=== PATIENT | female | born 1960 | race Two or more races ===

== ENCOUNTER 2019-01-17 21:49 | Inpatient (IN) | payer BC ==
[~2019-01-17] VITALS: Ht 152.4 cm; Wt 57.6 kg
[2019-01-17] MEDS ORDERED: ONDANSETRON HCL 4MG/2ML INJ IV STA (22:10)
[2019-01-17] MEDS ORDERED: VANCOMYCIN 1 G PREMIX 200 ML IV ONE (22:15)
[2019-01-17] MEDS ORDERED: PIPERACILLIN/TAZ 3.375G PREMIX 50 ML IV ONE (22:15)
[2019-01-17] MEDS ORDERED: SODIUM CHLORIDE 0.9% 1000ML BAG (SEPSIS BOLUS) IV ONE (22:15)
[2019-01-17 22:37] LABS: BASOPHILS % 0.6 % (0.0-2.0); EOSINOPHILS % 0.3 % (0.0-5.0); HEMATOCRIT. 34.2 % (36.0-48.0); HEMOGLOBIN. 11.3 g/dL (12.0-16.0); MEAN CORPUSCULAR HEMOGLOBIN 27.8 pg (28.0-32.0); MEAN CORPUSCULAR VOLUME 84.5 fL (81.0-99.0); MEAN PLATELET VOLUME 7.7 fl (7.4-10.4); MONOCYTES % 6.7 % (2.0-8.0); NEUTROPHILS % 76.4 % (40.0-76.0); PLATELET 256 x1000/uL (130-400); RED BLOOD CELL COUNT 4.04 mill/uL (4.2-5.4); RED CELL DISTRIBUTION WIDTH 15.3 % (11.6-14.6)
[2019-01-17 22:43] LABS: PROTHROMBIN TIME 10.6 sec (9.6-11.0)
[2019-01-17 22:44] LABS: CHLORIDE 117 mEq/L (98-107)
[2019-01-17] MEDS ORDERED: LACTULOSE 300 ML in WATER FOR IRRIGATION,STERILE 700 ML IR ONE (23:00)
[2019-01-17] MEDS ORDERED: HEPARIN 25,000 UNITS PREMIX 500 ML IV ONE (23:00)
[2019-01-17] MEDS ORDERED: ASPIRIN 300MG SUPP PR ONE (23:00)
[2019-01-17 23:28] LABS: CLARITY URINE CLEAR (CLEAR); COLOR URINE YELLOW (YELLOW); KETONES URINE TRACE (NEGATIVE); LEUKOCYTE ESTERASE URINE NEGATIVE (NEGATIVE); NITRITE URINE NEGATIVE (NEGATIVE); OCCULT BLOOD URINE NEGATIVE (NEGATIVE); PROTEIN URINE TRACE (NEGATIVE); SPECIFIC GRAVITY URINE 1.018 (1.005-1.030); UROBILINOGEN URINE 0.2 E.U./dL (0.2-1.0)
[2019-01-18] VITALS (16 sets, daily range): BP systolic 93–148; BP diastolic 66–96
[2019-01-18] MEDS ORDERED: DEXT 5%/0.45% NACL 1000ML 1,000 ML IV SCH (00:08)
[2019-01-18] MEDS ORDERED: ONDANSETRON HCL 4MG/2ML INJ IV PRN (00:15)
[2019-01-18] MEDS ORDERED: CLONIDINE 0.1MG TABLET PO PRN ×2 (00:15→08:45)
[2019-01-18] MEDS ORDERED: DIPHENHYDRAMINE 50MG/ML VIAL IV PRN ×2 (00:15→08:45)
[2019-01-18] MEDS ORDERED: NA PHOS,M-B/NA PHOS,DI-BA ENEMA 118ML PR PRN ×2 (00:15→08:45)
[2019-01-18] MEDS ORDERED: IPRATROPIUM/ALBUTEROL 0.5-3(2.5)MG/3ML NEB NEB PRN (00:15)
[2019-01-18] MEDS ORDERED: MAGNESIUM/ALUMINUM HYDROXIDE/SIMETHICONE 30ML UDC PO PRN ×2 (00:15→08:45)
[2019-01-18] MEDS ORDERED: GUAIFENESIN 200MG/10ML SUGAR FREE UDC PO PRN ×2 (00:15→08:45)
[2019-01-18] MEDS ORDERED: DOCUSATE SODIUM 100MG CAPSULE PO PRN (00:15)
[2019-01-18] MEDS ORDERED: HEPARIN 5000 UNITS/ML VIAL IV NR (01:00)
[2019-01-18] MEDS ORDERED: LACTULOSE 20G/30ML UDC PO SCH ×2 (02:45→06:00)
[2019-01-18] MEDS ORDERED: PROPOFOL 10MG/ML 100ML 100 ML IV ONE (04:04)
[2019-01-18] MEDS ORDERED: MIDAZOLAM HCL 50 MG in DEXTROSE 5% WATER 40 ML IV ONE (04:30)
[2019-01-18] MEDS ORDERED: MIDAZOLAM HCL 50 MG in DEXTROSE 5% WATER 50ML IV PRN (04:30)
[2019-01-18] MEDS ORDERED: PROPOFOL 10MG/ML 100ML 100 ML IV SCH (05:15)
[2019-01-18 05:50] LABS: BG BASE EXCESS -10.3 mmol/L (-2.0-2.0); BG CARBOXYHEMOGLOBIN 0.1 % (0.5-1.5); BG DEOXYHEMOGLOBIN 0.9 % (0.0-5.0); BG FRACTION INSPIRED OXYGEN 60; BG HCO3 ACT 12.4 mmol/L (22.0-26.0); BG METHEMOGLOBIN 0.2 % (0.0-1.5); BG OXYGEN SATURATION 99.1 % (92.0-98.5); BG OXYHEMOGLOBIN 98.8 % (94.0-97.0); BG PCO2 20.2 mmHg (35.0-45.0); BG PH 7.406 (7.350-7.450); BG PO2 247.9 mmHg (75.0-100.0); BG SAMPLE SITE RIGHT BRACHIAL; BG TIDAL VOLUME(mL) 500 mL; BG TOTAL HEMOGLOBIN 11.5 g/dL (12.0-18.0); BG VENT MODE VENT - A/C; BG VENT RATE 16 set
[2019-01-18] MEDS: SODIUM CHLORIDE 0.9% INJ 3ML FLUSH IVF SCH ×3 (06:00→22:00)
[2019-01-18] MEDS ORDERED: SODIUM BICARBONATE 100 MEQ in DEXT 5%/0.45% NACL 1000ML 1,000 ML IV SCH (08:00)
[2019-01-18] MEDS ORDERED: DEXTROSE 50% WATER 50ML SYRINGE IV PRN (08:45)
[2019-01-18] MEDS ORDERED: ACETAMINOPHEN 325MG TABLET PO PRN (08:45)
[2019-01-18] MEDS ORDERED: ENOXAPARIN 40MG/0.4ML SYR SUBCUT SCH (08:45)
[2019-01-18] MEDS ORDERED: ACETAMINOPHEN 650MG SUPP PR PRN (08:45)
[2019-01-18] MEDS ORDERED: IPRATROPIUM/ALBUTEROL 0.5-3(2.5)MG/3ML NEB ORI PRN (08:45)
[2019-01-18] MEDS ORDERED: ACETAMINOPHEN 650MG/20.3ML UDC GT PRN (08:45)
[2019-01-18] MEDS ORDERED: LEVOFLOXACIN 500MG PREMIX 100 ML IV SCH (09:11)
[2019-01-18] MEDS ORDERED: ENOXAPARIN 30MG/0.3ML SYR SUBCUT SCH (09:15)
[2019-01-18] MEDS: FOLIC ACID 1MG TABLET PO SCH (09:35)
[2019-01-18] MEDS: RIFAXIMIN 550 MG TABLET PO SCH ×2 (09:35→21:55)
[2019-01-18] MEDS: THIAMINE HCL 100MG TABLET PO SCH (09:39)
[2019-01-18] MEDS: BLOOD SUGAR DIAGNOSTIC STRIP TEST SCH ×4 (09:54→21:55)
[2019-01-18] MEDS: LACTULOSE 20G/30ML UDC PO SCH ×2 (10:00→18:01)
[2019-01-18] MEDS: SODIUM BICARBONATE 50 MEQ in DEXT 5%/0.45% NACL 1000ML 1,000 ML IV SCH ×2 (10:30→23:31)
[2019-01-18] MEDS ORDERED: NOREPINEPHRINE 4MG/250ML PMX 250 ML IV ONE ×2 (10:30→10:45)
[2019-01-18] MEDS ORDERED: NOREPINEPHRINE 4MG/250ML PMX 250 ML IV SCH (10:45)
[2019-01-18] MEDS ORDERED: NOREPINEPHRINE 4 MG in DEXT 5% WATER 246 ML IV ONE (10:45)
[2019-01-18] MEDS ORDERED: LIDOCAINE HCL 1% 20ML VIAL (Pyxis) INJ ONE (11:15)
[2019-01-18 12:17] LABS: HEMATOCRIT 32.3 % (36.0-48.0); HEMOGLOBIN 10.5 g/dL (12.0-16.0); MEAN CORPUSCULAR HEMOGLOBIN 28.1 pg (28.0-32.0); MEAN CORPUSCULAR VOLUME 86.3 fL (81.0-99.0); PLATELET 294 x1000/uL (130-400); RED BLOOD CELL COUNT 3.75 mill/uL (4.2-5.4); RED CELL DISTRIBUTION WIDTH 15.6 % (11.6-14.6)
[2019-01-18 12:21] LABS: CHLORIDE 118 mEq/L (98-107)
[2019-01-18 12:22] LABS: INR 1.1; PROTHROMBIN TIME 10.9 sec (9.6-11.0)
[2019-01-18 12:24] LABS: BG BASE EXCESS -8.2 mmol/L (-2.0-2.0); BG CARBOXYHEMOGLOBIN 0.3 % (0.5-1.5); BG DEOXYHEMOGLOBIN 1.1 % (0.0-5.0); BG FRACTION INSPIRED OXYGEN 40; BG HCO3 ACT 13.6 mmol/L (22.0-26.0); BG METHEMOGLOBIN 0.3 % (0.0-1.5); BG OXYGEN SATURATION 98.9 % (92.0-98.5); BG OXYHEMOGLOBIN 98.3 % (94.0-97.0); BG PCO2 19.7 mmHg (35.0-45.0); BG PH 7.457 (7.350-7.450); BG PO2 184.1 mmHg (75.0-100.0); BG SAMPLE SITE RIGHT RADIAL; BG TIDAL VOLUME(mL) 500 mL; BG TOTAL HEMOGLOBIN 11.5 g/dL (12.0-18.0); BG VENT MODE VENT - A/C; BG VENT RATE 12 set
[2019-01-18 12:31] LABS: CREATINE KINASE 135 IU/L (26-192)
[2019-01-18 12:33] LABS: CREATINE KINASE MB FRACTION 10.5 ng/mL (0.5-3.6)
[2019-01-18] MEDS: INSULIN LISPRO 100 UNITS/ML SUBCUT SCH ×3 (14:47→22:18)
[2019-01-18] MEDS ORDERED: METRONIDAZOLE 500 MG PREMIX 100 ML IV SCH (15:29)
[2019-01-18] MEDS: METRONIDAZOLE 500 MG PREMIX 100 ML IV SCH (18:02)
[2019-01-18] MEDS: ENOXAPARIN 30MG/0.3ML SYR SUBCUT SCH (18:02)
[2019-01-18] MEDS: CITRIC ACID/SODIUM CITRATE SOLN 15ML UDC PO SCH (18:02)
[2019-01-18 18:21] LABS: BG BASE EXCESS -9.2 mmol/L (-2.0-2.0); BG CARBOXYHEMOGLOBIN 0.2 % (0.5-1.5); BG DEOXYHEMOGLOBIN 0.8 % (0.0-5.0); BG FRACTION INSPIRED OXYGEN 40; BG METHEMOGLOBIN 0.1 % (0.0-1.5); BG OXYGEN SATURATION 99.2 % (92.0-98.5); BG OXYHEMOGLOBIN 98.9 % (94.0-97.0); BG PCO2 14.4 mmHg (35.0-45.0); BG PH 7.502 (7.350-7.450); BG PO2 195.1 mmHg (75.0-100.0); BG SAMPLE SITE LEFT BRACHIAL; BG TIDAL VOLUME(mL) 500 mL; BG TOTAL HEMOGLOBIN 12.4 g/dL (12.0-18.0); BG VENT MODE VENT - A/C; BG VENT RATE 12 set
[2019-01-18] MEDS ORDERED: NOREPINEPHRINE 16 MG in DEXT 5% WATER 234 ML IV PRN (18:45)
[2019-01-18] MEDS: NOREPINEPHRINE 16 MG in DEXT 5% WATER 234 ML IV PRN (18:58)
[2019-01-18 20:16] LABS: CREATINE KINASE MB FRACTION 3.8 ng/mL (0.5-3.6)
[2019-01-18] MEDS: IPRATROPIUM/ALBUTEROL 0.5-3(2.5)MG/3ML NEB HHN SCH (20:35)
[2019-01-19] VITALS (71 sets, daily range): BP systolic 65–136; BP diastolic 18–97
[2019-01-19 00:36] LABS: CREATINE KINASE 221 IU/L (26-192)
[2019-01-19 00:38] LABS: CREATINE KINASE MB FRACTION 7.7 ng/mL (0.5-3.6)
[2019-01-19] MEDS: LACTULOSE 20G/30ML UDC PO SCH ×3 (01:23→18:37)
[2019-01-19] MEDS: METRONIDAZOLE 500 MG PREMIX 100 ML IV SCH ×3 (01:24→18:37)
[2019-01-19] MEDS: IPRATROPIUM/ALBUTEROL 0.5-3(2.5)MG/3ML NEB HHN SCH ×7 (02:59→23:52)
[2019-01-19] MEDS ORDERED: PIOG45TA5 PO (03:21)
[2019-01-19] MEDS ORDERED: VER40 MT (03:30)
[2019-01-19] MEDS ORDERED: LACT10SO6 MT (03:31)
[2019-01-19] MEDS: SODIUM CHLORIDE 0.9% INJ 3ML FLUSH IVF SCH ×3 (06:08→22:00)
[2019-01-19 06:15] LABS: BASOPHILS % 0.9 % (0.0-2.0); EOSINOPHILS % 1.2 % (0.0-5.0); HEMATOCRIT. 37.2 % (36.0-48.0); HEMOGLOBIN. 11.9 g/dL (12.0-16.0); LYMPHOCYTES % 16.9 % (20.0-50.0); MEAN CORPUSCULAR HEMOGLOBIN 28.1 pg (28.0-32.0); MEAN CORPUSCULAR VOLUME 87.4 fL (81.0-99.0); MEAN PLATELET VOLUME 7.7 fl (7.4-10.4); MONOCYTES % 9.6 % (2.0-8.0); NEUTROPHILS % 71.4 % (40.0-76.0); PLATELET 285 x1000/uL (130-400); RED BLOOD CELL COUNT 4.25 mill/uL (4.2-5.4); RED CELL DISTRIBUTION WIDTH 15.9 % (11.6-14.6)
[2019-01-19 06:27] LABS: CHLORIDE 110 mEq/L (98-107)
[2019-01-19 06:40] LABS: PHOSPHORUS 2.4 mg/dL (2.5-4.9)
[2019-01-19 06:41] LABS: HDL CHOLESTEROL 51 mg/dL (40-59); LDL CHOLESTEROL 64 mg/dL (5-100)
[2019-01-19] MEDS: MIDAZOLAM HCL 50 MG in DEXTROSE 5% WATER 40 ML IV PRN ×3 (08:43→20:58)
[2019-01-19] MEDS: BLOOD SUGAR DIAGNOSTIC STRIP TEST SCH ×4 (08:44→21:00)
[2019-01-19] MEDS: CITRIC ACID/SODIUM CITRATE SOLN 15ML UDC PO SCH ×2 (08:54→13:01)
[2019-01-19] MEDS: FOLIC ACID 1MG TABLET PO SCH (08:54)
[2019-01-19] MEDS: PANTOPRAZOLE SODIUM 40 MG/VIAL IV SCH (08:54)
[2019-01-19] MEDS: RIFAXIMIN 550 MG TABLET PO SCH ×2 (08:54→21:41)
[2019-01-19] MEDS: THIAMINE HCL 100MG TABLET PO SCH (08:55)
[2019-01-19] MEDS: NOREPINEPHRINE 16 MG in DEXT 5% WATER 234 ML IV PRN (08:55)
[2019-01-19] MEDS ORDERED: LEVOFLOXACIN 250MG PREMIX 50 ML IV SCH (09:00)
[2019-01-19 09:01] LABS: BG BASE EXCESS -6.3 mmol/L (-2.0-2.0); BG CARBOXYHEMOGLOBIN 0.2 % (0.5-1.5); BG DEOXYHEMOGLOBIN 1.2 % (0.0-5.0); BG FRACTION INSPIRED OXYGEN 40; BG HCO3 ACT 15.3 mmol/L (22.0-26.0); BG METHEMOGLOBIN 0.3 % (0.0-1.5); BG OXYGEN SATURATION 98.8 % (92.0-98.5); BG OXYHEMOGLOBIN 98.3 % (94.0-97.0); BG PCO2 20.4 mmHg (35.0-45.0); BG PH 7.492 (7.350-7.450); BG PO2 173.4 mmHg (75.0-100.0); BG SAMPLE SITE RIGHT BRACHIAL; BG TIDAL VOLUME(mL) 500 mL; BG TOTAL HEMOGLOBIN 10.6 g/dL (12.0-18.0); BG VENT MODE VENT - A/C; BG VENT RATE 10 set
[2019-01-19] MEDS ORDERED: AMLODIPINE 10MG TABLET PO ONE (09:30)
[2019-01-19] MEDS: INSULIN LISPRO 100 UNITS/ML SUBCUT SCH ×4 (10:36→21:42)
[2019-01-19] MEDS ORDERED: MORPHINE SULFATE 2 MG/ML CPJ (NOT FOR IM USE) IV PRN (11:54)
[2019-01-19] MEDS: SODIUM BICARBONATE 50 MEQ in DEXT 5%/0.45% NACL 1000ML 1,000 ML IV SCH (16:03)
[2019-01-19] MEDS ORDERED: MAGNESIUM 2 G PREMIX 50 ML IV SCH (18:00)
[2019-01-19] MEDS ORDERED: SODIUM PHOS,M-BASIC-D-BASIC 10 MM in DEXT 5% WATER 246.6667 ML IV SCH (18:00)
[2019-01-19] MEDS: DEXT 5%/0.9% NACL 1,000 ML IV SCH (18:38)
[2019-01-19] MEDS: ENOXAPARIN 30MG/0.3ML SYR SUBCUT SCH (18:50)
[2019-01-20] VITALS (48 sets, daily range): BP systolic 91–127; BP diastolic 49–89
[2019-01-20] MEDS: METRONIDAZOLE 500 MG PREMIX 100 ML IV SCH ×3 (02:42→19:02)
[2019-01-20] MEDS: LACTULOSE 20G/30ML UDC PO SCH ×3 (02:42→18:00)
[2019-01-20] MEDS: MIDAZOLAM HCL 100 MG in DEXTROSE 5% WATER 80 ML IV PRN ×3 (02:42→23:52)
[2019-01-20] MEDS: IPRATROPIUM/ALBUTEROL 0.5-3(2.5)MG/3ML NEB HHN SCH ×5 (04:02→20:31)
[2019-01-20] MEDS: SODIUM CHLORIDE 0.9% INJ 3ML FLUSH IVF SCH ×3 (05:07→21:34)
[2019-01-20 06:22] LABS: BASOPHILS % 0.6 % (0.0-2.0); EOSINOPHILS % 1.8 % (0.0-5.0); HEMATOCRIT. 34.6 % (36.0-48.0); HEMOGLOBIN. 11.1 g/dL (12.0-16.0); LYMPHOCYTES % 15.1 % (20.0-50.0); MEAN CORPUSCULAR HEMOGLOBIN 27.9 pg (28.0-32.0); MEAN PLATELET VOLUME 7.8 fl (7.4-10.4); MONOCYTES % 7.2 % (2.0-8.0); NEUTROPHILS % 75.3 % (40.0-76.0); PLATELET 330 x1000/uL (130-400); RED BLOOD CELL COUNT 3.97 mill/uL (4.2-5.4)
[2019-01-20 07:22] LABS: INR 1.1; PARTIAL THROMBOPLASTIN TIME 30.7 sec (23.4-31.0); PROTHROMBIN TIME 11.6 sec (9.6-11.0)
[2019-01-20] MEDS: BLOOD SUGAR DIAGNOSTIC STRIP TEST SCH ×4 (07:50→21:22)
[2019-01-20 08:19] LABS: BG BASE EXCESS -4.9 mmol/L (-2.0-2.0); BG CARBOXYHEMOGLOBIN 0.7 % (0.5-1.5); BG FRACTION INSPIRED OXYGEN 35; BG HCO3 ACT 17.3 mmol/L (22.0-26.0); BG METHEMOGLOBIN 0.2 % (0.0-1.5); BG OXYHEMOGLOBIN 98.1 % (94.0-97.0); BG PCO2 24.5 mmHg (35.0-45.0); BG PH 7.467 (7.350-7.450); BG PO2 157.4 mmHg (75.0-100.0); BG SAMPLE SITE RIGHT BRACHIAL; BG TIDAL VOLUME(mL) 500 mL; BG TOTAL HEMOGLOBIN 11.9 g/dL (12.0-18.0); BG VENT MODE VENT - A/C; BG VENT RATE 10 set
[2019-01-20] MEDS: INSULIN LISPRO 100 UNITS/ML SUBCUT SCH ×4 (08:20→21:33)
[2019-01-20] MEDS: THIAMINE HCL 100MG TABLET PO SCH (09:00)
[2019-01-20] MEDS: LEVOFLOXACIN 250MG PREMIX 50 ML IV SCH (09:00)
[2019-01-20] MEDS ORDERED: AMLODIPINE 10MG TABLET PO SCH (09:00)
[2019-01-20] MEDS: PANTOPRAZOLE SODIUM 40 MG/VIAL IV SCH (09:00)
[2019-01-20] MEDS: FOLIC ACID 1MG TABLET PO SCH (09:00)
[2019-01-20] MEDS: RIFAXIMIN 550 MG TABLET PO SCH ×2 (09:00→21:33)
[2019-01-20] MEDS ORDERED: MAGNESIUM 2 G PREMIX 50 ML IV SCH (10:00)
[2019-01-20] MEDS ORDERED: POTASSIUM CHLORIDE INJ 40 MEQ in DEXT 5% WATER 250 ML IV SCH (10:00)
[2019-01-20] MEDS: DEXT 5%/0.9% NACL 1,000 ML IV SCH (13:00)
[2019-01-20] MEDS: ENOXAPARIN 30MG/0.3ML SYR SUBCUT SCH (19:02)
[2019-01-21] VITALS (59 sets, daily range): BP systolic 94–138; BP diastolic 48–89
[2019-01-21] MEDS: IPRATROPIUM/ALBUTEROL 0.5-3(2.5)MG/3ML NEB HHN SCH ×6 (00:08→20:32)
[2019-01-21] MEDS: LACTULOSE 20G/30ML UDC PO SCH ×3 (01:29→18:20)
[2019-01-21] MEDS: METRONIDAZOLE 500 MG PREMIX 100 ML IV SCH ×3 (01:29→18:20)
[2019-01-21] MEDS: NOREPINEPHRINE 16 MG in DEXT 5% WATER 234 ML IV PRN (04:43)
[2019-01-21] MEDS: SODIUM CHLORIDE 0.9% INJ 3ML FLUSH IVF SCH ×3 (06:00→21:01)
[2019-01-21 06:15] LABS: EOSINOPHILS % 3.8 % (0.0-5.0); HEMATOCRIT. 33.6 % (36.0-48.0); HEMOGLOBIN. 11.1 g/dL (12.0-16.0); LYMPHOCYTES % 15.9 % (20.0-50.0); MEAN CORPUSCULAR HEMOGLOBIN 28.7 pg (28.0-32.0); MEAN CORPUSCULAR VOLUME 86.9 fL (81.0-99.0); MEAN PLATELET VOLUME 7.9 fl (7.4-10.4); MONOCYTES % 6.8 % (2.0-8.0); NEUTROPHILS % 72.5 % (40.0-76.0); PLATELET 310 x1000/uL (130-400); RED BLOOD CELL COUNT 3.86 mill/uL (4.2-5.4); RED CELL DISTRIBUTION WIDTH 15.5 % (11.6-14.6)
[2019-01-21 06:28] LABS: INR 1.1; PARTIAL THROMBOPLASTIN TIME 27.6 sec (23.4-31.0); PROTHROMBIN TIME 11.4 sec (9.6-11.0)
[2019-01-21] MEDS: BLOOD SUGAR DIAGNOSTIC STRIP TEST SCH ×4 (07:50→21:01)
[2019-01-21] MEDS: INSULIN LISPRO 100 UNITS/ML SUBCUT SCH ×4 (08:20→21:09)
[2019-01-21] MEDS: FOLIC ACID 1MG TABLET PO SCH (09:34)
[2019-01-21] MEDS: LEVOFLOXACIN 250MG PREMIX 50 ML IV SCH (09:34)
[2019-01-21] MEDS: THIAMINE HCL 100MG TABLET PO SCH (09:35)
[2019-01-21] MEDS: PANTOPRAZOLE SODIUM 40 MG/VIAL IV SCH (09:35)
[2019-01-21] MEDS: DEXT 5%/0.9% NACL 1,000 ML IV SCH (09:35)
[2019-01-21] MEDS: RIFAXIMIN 550 MG TABLET PO SCH ×2 (09:36→21:08)
[2019-01-21] MEDS: ENOXAPARIN 30MG/0.3ML SYR SUBCUT SCH (18:21)
[2019-01-22] VITALS (58 sets, daily range): BP systolic 72–131; BP diastolic 43–86
[2019-01-22] MEDS: IPRATROPIUM/ALBUTEROL 0.5-3(2.5)MG/3ML NEB HHN SCH ×6 (00:26→20:36)
[2019-01-22] MEDS: LACTULOSE 20G/30ML UDC PO SCH ×3 (01:56→18:30)
[2019-01-22] MEDS: METRONIDAZOLE 500 MG PREMIX 100 ML IV SCH ×3 (01:57→18:30)
[2019-01-22] MEDS: SODIUM CHLORIDE 0.9% INJ 3ML FLUSH IVF SCH ×3 (05:36→21:38)
[2019-01-22] MEDS: DEXT 5%/0.9% NACL 1,000 ML IV SCH (05:36)
[2019-01-22 05:56] LABS: EOSINOPHILS % 4.2 % (0.0-5.0); HEMATOCRIT. 30.8 % (36.0-48.0); HEMOGLOBIN. 10.1 g/dL (12.0-16.0); LYMPHOCYTES % 14.5 % (20.0-50.0); MEAN CORPUSCULAR HEMOGLOBIN 28.3 pg (28.0-32.0); MEAN CORPUSCULAR VOLUME 86.1 fL (81.0-99.0); MEAN PLATELET VOLUME 7.7 fl (7.4-10.4); MONOCYTES % 6.6 % (2.0-8.0); NEUTROPHILS % 73.7 % (40.0-76.0); PLATELET 279 x1000/uL (130-400); RED BLOOD CELL COUNT 3.57 mill/uL (4.2-5.4); RED CELL DISTRIBUTION WIDTH 15.5 % (11.6-14.6)
[2019-01-22 06:05] LABS: INR 1.1; PARTIAL THROMBOPLASTIN TIME 28.9 sec (23.4-31.0); PROTHROMBIN TIME 11.4 sec (9.6-11.0)
[2019-01-22 06:11] LABS: PHOSPHORUS 2.5 mg/dL (2.5-4.9)
[2019-01-22] MEDS ORDERED: POTASSIUM CHLORIDE 20MEQ TABLET SR PO SCH (07:30)
[2019-01-22] MEDS: BLOOD SUGAR DIAGNOSTIC STRIP TEST SCH ×4 (07:50→21:38)
[2019-01-22] MEDS: INSULIN LISPRO 100 UNITS/ML SUBCUT SCH ×4 (08:20→21:14)
[2019-01-22] MEDS ORDERED: ALBUMIN HUMAN 25GM/100ML (25%) IV NR (09:00)
[2019-01-22] MEDS: LEVOFLOXACIN 250MG PREMIX 50 ML IV SCH (09:00)
[2019-01-22 09:02] LABS: BG BASE EXCESS -6.8 mmol/L (-2.0-2.0); BG CARBOXYHEMOGLOBIN 0.4 % (0.5-1.5); BG DEOXYHEMOGLOBIN 1.7 % (0.0-5.0); BG FRACTION INSPIRED OXYGEN 30; BG HCO3 ACT 16.7 mmol/L (22.0-26.0); BG METHEMOGLOBIN 0.1 % (0.0-1.5); BG OXYGEN SATURATION 98.3 % (92.0-98.5); BG OXYHEMOGLOBIN 97.8 % (94.0-97.0); BG PH 7.394 (7.350-7.450); BG PO2 117.7 mmHg (75.0-100.0); BG SAMPLE SITE RIGHT RADIAL; BG TIDAL VOLUME(mL) 450 mL; BG VENT MODE VENT - A/C; BG VENT RATE 10 set
[2019-01-22] MEDS: PANTOPRAZOLE SODIUM 40 MG/VIAL IV SCH (09:51)
[2019-01-22] MEDS: MIDODRINE HCL 5MG TABLET NG SCH ×3 (09:51→17:34)
[2019-01-22] MEDS: RIFAXIMIN 550 MG TABLET PO SCH ×2 (09:53→21:13)
[2019-01-22] MEDS: THIAMINE HCL 100MG TABLET PO SCH (09:53)
[2019-01-22] MEDS: FOLIC ACID 1MG TABLET PO SCH (09:53)
[2019-01-22 12:50] LABS: BG BASE EXCESS -6.7 mmol/L (-2.0-2.0); BG CARBOXYHEMOGLOBIN 0.8 % (0.5-1.5); BG DEOXYHEMOGLOBIN 1.4 % (0.0-5.0); BG FRACTION INSPIRED OXYGEN 30; BG HCO3 ACT 17.4 mmol/L (22.0-26.0); BG OXYGEN SATURATION 98.6 % (92.0-98.5); BG OXYHEMOGLOBIN 97.8 % (94.0-97.0); BG PH 7.367 (7.350-7.450); BG PO2 134.3 mmHg (75.0-100.0); BG PRESSURE SUPPORT 8; BG SAMPLE SITE RIGHT BRACHIAL; BG TOTAL HEMOGLOBIN 14.2 g/dL (12.0-18.0); BG VENT MODE VENT - CPAP
[2019-01-22] MEDS: ENOXAPARIN 30MG/0.3ML SYR SUBCUT SCH (18:00)
[2019-01-23] VITALS (53 sets, daily range): BP systolic 81–139; BP diastolic 50–80
[2019-01-23] MEDS: IPRATROPIUM/ALBUTEROL 0.5-3(2.5)MG/3ML NEB HHN SCH ×6 (00:27→21:01)
[2019-01-23] MEDS: DEXT 5%/0.9% NACL 1,000 ML IV SCH (01:33)
[2019-01-23] MEDS: METRONIDAZOLE 500 MG PREMIX 100 ML IV SCH ×3 (01:33→17:31)
[2019-01-23] MEDS: LACTULOSE 20G/30ML UDC PO SCH ×3 (01:33→17:31)
[2019-01-23] MEDS: SODIUM CHLORIDE 0.9% INJ 3ML FLUSH IVF SCH ×3 (05:19→22:56)
[2019-01-23 05:40] LABS: BASOPHILS % 1.2 % (0.0-2.0); EOSINOPHILS % 3.7 % (0.0-5.0); HEMATOCRIT. 26.8 % (36.0-48.0); HEMOGLOBIN. 8.9 g/dL (12.0-16.0); LYMPHOCYTES % 19.6 % (20.0-50.0); MEAN CORPUSCULAR HEMOGLOBIN 28.8 pg (28.0-32.0); MEAN CORPUSCULAR VOLUME 87.1 fL (81.0-99.0); MEAN PLATELET VOLUME 7.5 fl (7.4-10.4); MONOCYTES % 6.5 % (2.0-8.0); PLATELET 179 x1000/uL (130-400); RED BLOOD CELL COUNT 3.08 mill/uL (4.2-5.4); RED CELL DISTRIBUTION WIDTH 15.5 % (11.6-14.6)
[2019-01-23 06:03] LABS: PHOSPHORUS 2.5 mg/dL (2.5-4.9)
[2019-01-23] MEDS: BLOOD SUGAR DIAGNOSTIC STRIP TEST SCH ×4 (07:50→21:24)
[2019-01-23] MEDS ORDERED: DEXT 5%/0.45% NACL 1000ML 1,000 ML IV SCH (08:00)
[2019-01-23] MEDS: INSULIN LISPRO 100 UNITS/ML SUBCUT SCH ×4 (08:20→21:00)
[2019-01-23] MEDS: RIFAXIMIN 550 MG TABLET PO SCH ×2 (09:00→21:24)
[2019-01-23] MEDS: CITRIC ACID/SODIUM CITRATE SOLN 15ML UDC PO SCH ×3 (09:00→17:30)
[2019-01-23] MEDS: PANTOPRAZOLE SODIUM 40 MG/VIAL IV SCH (09:00)
[2019-01-23] MEDS: MIDODRINE HCL 5MG TABLET NG SCH ×3 (09:00→17:30)
[2019-01-23] MEDS: THIAMINE HCL 100MG TABLET PO SCH (09:00)
[2019-01-23] MEDS: FOLIC ACID 1MG TABLET PO SCH (09:00)
[2019-01-23] MEDS ORDERED: LIDOCAINE HCL 1% 20ML VIAL (Pyxis) INJ ONE (09:34)
[2019-01-23] MEDS ORDERED: SODIUM BICARBONATE 4% (2.4MEQ) 5ML VIAL IV ONE (09:34)
[2019-01-23] MEDS: LEVOFLOXACIN 250MG PREMIX 50 ML IV SCH (11:13)
[2019-01-23] MEDS: ENOXAPARIN 30MG/0.3ML SYR SUBCUT SCH (17:31)
[2019-01-24] VITALS (57 sets, daily range): BP systolic 77–130; BP diastolic 50–116
[2019-01-24] MEDS: IPRATROPIUM/ALBUTEROL 0.5-3(2.5)MG/3ML NEB HHN SCH ×6 (00:43→21:23)
[2019-01-24] MEDS: LACTULOSE 20G/30ML UDC PO SCH ×3 (01:15→17:15)
[2019-01-24] MEDS: METRONIDAZOLE 500 MG PREMIX 100 ML IV SCH ×3 (01:16→17:17)
[2019-01-24] MEDS: SODIUM CHLORIDE 0.9% INJ 3ML FLUSH IVF SCH ×3 (06:00→21:48)
[2019-01-24 06:56] LABS: BASOPHILS % 0.7 % (0.0-2.0); EOSINOPHILS % 3.6 % (0.0-5.0); HEMATOCRIT. 30.1 % (36.0-48.0); HEMOGLOBIN. 9.7 g/dL (12.0-16.0); LYMPHOCYTES % 16.5 % (20.0-50.0); MEAN CORPUSCULAR HEMOGLOBIN 27.8 pg (28.0-32.0); MEAN CORPUSCULAR VOLUME 86.5 fL (81.0-99.0); MEAN PLATELET VOLUME 7.5 fl (7.4-10.4); MONOCYTES % 6.3 % (2.0-8.0); NEUTROPHILS % 72.9 % (40.0-76.0); PLATELET 206 x1000/uL (130-400); RED BLOOD CELL COUNT 3.48 mill/uL (4.2-5.4); RED CELL DISTRIBUTION WIDTH 15.8 % (11.6-14.6)
[2019-01-24 07:14] LABS: PHOSPHORUS 2.5 mg/dL (2.5-4.9)
[2019-01-24] MEDS ORDERED: ALBUMIN HUMAN 25GM/100ML (25%) IV NR (07:45)
[2019-01-24] MEDS: BLOOD SUGAR DIAGNOSTIC STRIP TEST SCH ×4 (07:50→20:41)
[2019-01-24] MEDS: THIAMINE HCL 100MG TABLET PO SCH (08:08)
[2019-01-24] MEDS: RIFAXIMIN 550 MG TABLET PO SCH ×2 (08:08→20:33)
[2019-01-24] MEDS: PANTOPRAZOLE SODIUM 40 MG/VIAL IV SCH (08:08)
[2019-01-24] MEDS: CITRIC ACID/SODIUM CITRATE SOLN 15ML UDC PO SCH ×3 (08:08→17:15)
[2019-01-24] MEDS: INSULIN LISPRO 100 UNITS/ML SUBCUT SCH ×4 (08:09→20:42)
[2019-01-24] MEDS: FOLIC ACID 1MG TABLET PO SCH (08:09)
[2019-01-24] MEDS: LEVOFLOXACIN 250MG PREMIX 50 ML IV SCH (08:10)
[2019-01-24] MEDS ORDERED: MIDODRINE HCL 5MG TABLET NG SCH (09:00)
[2019-01-24] MEDS: MIDODRINE HCL 5MG TABLET PO SCH ×2 (13:18→17:15)
[2019-01-24] MEDS: ENOXAPARIN 30MG/0.3ML SYR SUBCUT SCH (17:15)
[2019-01-25] VITALS: BP 106/55
[2019-01-25] MEDS: IPRATROPIUM/ALBUTEROL 0.5-3(2.5)MG/3ML NEB HHN SCH ×6 (01:08→21:00)
[2019-01-25] MEDS: METRONIDAZOLE 500 MG PREMIX 100 ML IV SCH ×2 (02:42→09:39)
[2019-01-25 04:00] VITALS: BP 92/59
[2019-01-25] MEDS: SODIUM CHLORIDE 0.9% INJ 3ML FLUSH IVF SCH ×3 (05:10→22:14)
[2019-01-25] MEDS: BLOOD SUGAR DIAGNOSTIC STRIP TEST SCH ×4 (07:06→21:00)
[2019-01-25 07:27] LABS: BASOPHILS % 0.8 % (0.0-2.0); EOSINOPHILS % 3.1 % (0.0-5.0); HEMATOCRIT. 34.2 % (36.0-48.0); HEMOGLOBIN. 10.9 g/dL (12.0-16.0); LYMPHOCYTES % 20.6 % (20.0-50.0); MEAN CORPUSCULAR HEMOGLOBIN 27.5 pg (28.0-32.0); MEAN CORPUSCULAR VOLUME 86.5 fL (81.0-99.0); MEAN PLATELET VOLUME 7.4 fl (7.4-10.4); MONOCYTES % 6.8 % (2.0-8.0); NEUTROPHILS % 68.7 % (40.0-76.0); PLATELET 252 x1000/uL (130-400); RED BLOOD CELL COUNT 3.95 mill/uL (4.2-5.4); RED CELL DISTRIBUTION WIDTH 15.8 % (11.6-14.6)
[2019-01-25] MEDS: INSULIN LISPRO 100 UNITS/ML SUBCUT SCH ×4 (07:50→22:12)
[2019-01-25 08:30] VITALS: BP 86/60
[2019-01-25] MEDS: RIFAXIMIN 550 MG TABLET PO SCH (09:36)
[2019-01-25] MEDS: MIDODRINE HCL 5MG TABLET PO SCH ×3 (09:37→19:02)
[2019-01-25] MEDS: FOLIC ACID 1MG TABLET PO SCH (09:37)
[2019-01-25] MEDS: THIAMINE HCL 100MG TABLET PO SCH (09:37)
[2019-01-25] MEDS: LEVOFLOXACIN 250MG PREMIX 50 ML IV SCH (09:39)
[2019-01-25] MEDS: PANTOPRAZOLE SODIUM 40 MG/VIAL IV SCH (09:39)
[2019-01-25] MEDS: LACTULOSE 20G/30ML UDC PO SCH (09:39)
[2019-01-25] MEDS: CITRIC ACID/SODIUM CITRATE SOLN 15ML UDC PO SCH ×3 (09:39→19:01)
[2019-01-25] MEDS ORDERED: ALBUMIN HUMAN 25GM/100ML (25%) IV NR (11:15)
[2019-01-25 11:38] VITALS: BP 92/59
[2019-01-25] MEDS ORDERED: RIFA550T MT (13:43)
[2019-01-25] MEDS ORDERED: CITR473S PO (13:44)
[2019-01-25] MEDS ORDERED: LIDOCAINE HCL 1% 20ML VIAL (Pyxis) INJ ONE (15:34)
[2019-01-25] MEDS ORDERED: SODIUM BICARBONATE 4% (2.4MEQ) 5ML VIAL IV ONE (15:34)
[2019-01-25] MEDS: ENOXAPARIN 30MG/0.3ML SYR SUBCUT SCH (19:01)
[2019-01-25 20:28] VITALS: BP 95/55
[2019-01-26 00:29] VITALS: BP 87/62
[2019-01-26] MEDS: IPRATROPIUM/ALBUTEROL 0.5-3(2.5)MG/3ML NEB HHN SCH ×6 (00:34→21:35)
[2019-01-26 04:00] VITALS: BP 78/49
[2019-01-26] MEDS: SODIUM CHLORIDE 0.9% INJ 3ML FLUSH IVF SCH ×2 (06:00→13:46)
[2019-01-26] MEDS: MIDODRINE HCL 5MG TABLET PO SCH ×3 (06:44→17:20)
[2019-01-26] MEDS: INSULIN LISPRO 100 UNITS/ML SUBCUT SCH ×4 (07:50→21:00)
[2019-01-26 08:00] VITALS: BP 81/46
[2019-01-26] MEDS ORDERED: SODIUM CHLORIDE 0.9% 250 ML IV ONE (08:00)
[2019-01-26] MEDS: BLOOD SUGAR DIAGNOSTIC STRIP TEST SCH ×4 (08:02→21:28)
[2019-01-26 08:29] LABS: BASOPHILS % 0.5 % (0.0-2.0); EOSINOPHILS % 1.5 % (0.0-5.0); HEMATOCRIT. 33.2 % (36.0-48.0); HEMOGLOBIN. 10.4 g/dL (12.0-16.0); LYMPHOCYTES % 18.5 % (20.0-50.0); MEAN CORPUSCULAR HEMOGLOBIN 27.5 pg (28.0-32.0); MEAN CORPUSCULAR VOLUME 87.6 fL (81.0-99.0); MEAN PLATELET VOLUME 7.9 fl (7.4-10.4); MONOCYTES % 6.3 % (2.0-8.0); NEUTROPHILS % 73.2 % (40.0-76.0); PHOSPHORUS 4.3 mg/dL (2.5-4.9); PLATELET 272 x1000/uL (130-400); RED BLOOD CELL COUNT 3.79 mill/uL (4.2-5.4); RED CELL DISTRIBUTION WIDTH 15.8 % (11.6-14.6)
[2019-01-26] MEDS: PANTOPRAZOLE SODIUM 40 MG/VIAL IV SCH (08:41)
[2019-01-26] MEDS: THIAMINE HCL 100MG TABLET PO SCH (08:42)
[2019-01-26] MEDS: LACTULOSE 20G/30ML UDC PO SCH (08:43)
[2019-01-26] MEDS: FOLIC ACID 1MG TABLET PO SCH (08:43)
[2019-01-26] MEDS: CITRIC ACID/SODIUM CITRATE SOLN 15ML UDC PO SCH ×3 (08:43→17:20)
[2019-01-26] MEDS ORDERED: ALBUMIN HUMAN 25GM/100ML (25%) IV SCH (09:00)
[2019-01-26 12:00] VITALS: BP 86/55
[2019-01-26 16:00] VITALS: BP 96/52
[2019-01-26] MEDS: SODIUM CHLORIDE 0.9% 1,000 ML IV SCH (17:21)
[2019-01-26] MEDS: ENOXAPARIN 30MG/0.3ML SYR SUBCUT SCH (17:21)
[2019-01-26 20:49] VITALS: BP 91/51
[2019-01-27 00:26] VITALS: BP 83/47
[2019-01-27] MEDS: IPRATROPIUM/ALBUTEROL 0.5-3(2.5)MG/3ML NEB HHN SCH ×5 (01:03→20:18)
[2019-01-27 04:00] VITALS: BP 104/50
[2019-01-27] MEDS: SODIUM CHLORIDE 0.9% INJ 3ML FLUSH IVF SCH ×3 (06:12→22:27)
[2019-01-27] MEDS: SODIUM CHLORIDE 0.9% 1,000 ML IV SCH ×2 (06:13→22:28)
[2019-01-27] MEDS: BLOOD SUGAR DIAGNOSTIC STRIP TEST SCH ×4 (06:13→21:00)
[2019-01-27 07:33] LABS: CHLORIDE 116 mEq/L (98-107)
[2019-01-27] MEDS: INSULIN LISPRO 100 UNITS/ML SUBCUT SCH ×4 (07:50→21:00)
[2019-01-27 08:00] VITALS: BP 85/50
[2019-01-27 08:11] LABS: BASOPHILS % 0.7 % (0.0-2.0); EOSINOPHILS % 2.6 % (0.0-5.0); HEMATOCRIT. 32.7 % (36.0-48.0); HEMOGLOBIN. 10.5 g/dL (12.0-16.0); LYMPHOCYTES % 21.8 % (20.0-50.0); MEAN CORPUSCULAR HEMOGLOBIN 28.1 pg (28.0-32.0); MEAN CORPUSCULAR VOLUME 87.2 fL (81.0-99.0); MEAN PLATELET VOLUME 7.3 fl (7.4-10.4); NEUTROPHILS % 68.9 % (40.0-76.0); PLATELET 220 x1000/uL (130-400); RED BLOOD CELL COUNT 3.74 mill/uL (4.2-5.4); RED CELL DISTRIBUTION WIDTH 15.8 % (11.6-14.6)
[2019-01-27] MEDS ORDERED: MIDO5TAB PO (08:37)
[2019-01-27] MEDS ORDERED: ALBUMIN HUMAN 25GM/100ML (25%) IV SCH (09:00)
[2019-01-27] MEDS: CITRIC ACID/SODIUM CITRATE SOLN 15ML UDC PO SCH ×3 (10:26→17:36)
[2019-01-27] MEDS: PANTOPRAZOLE SODIUM 40 MG/VIAL IV SCH (10:26)
[2019-01-27] MEDS: MIDODRINE HCL 5MG TABLET PO SCH ×3 (10:26→17:36)
[2019-01-27] MEDS: FOLIC ACID 1MG TABLET PO SCH (10:26)
[2019-01-27] MEDS: THIAMINE HCL 100MG TABLET PO SCH (10:26)
[2019-01-27] MEDS: LACTULOSE 20G/30ML UDC PO SCH (10:29)
[2019-01-27 12:00] VITALS: BP 86/53
[2019-01-27 16:00] VITALS: BP 96/57
[2019-01-27 16:00] LABS: CHLORIDE 116 mEq/L (98-107)
[2019-01-27] MEDS: ENOXAPARIN 30MG/0.3ML SYR SUBCUT SCH (17:44)
[2019-01-27] MEDS ORDERED: ONDANSETRON HCL 4MG TABLET PO SCH (18:30)
[2019-01-27 20:21] VITALS: BP 80/48
[2019-01-28] MEDS: IPRATROPIUM/ALBUTEROL 0.5-3(2.5)MG/3ML NEB HHN SCH ×6 (00:01→21:36)
[2019-01-28 00:25] VITALS: BP 85/54
[2019-01-28 04:00] VITALS: BP 80/47
[2019-01-28] MEDS: SODIUM CHLORIDE 0.9% INJ 3ML FLUSH IVF SCH ×3 (05:57→22:58)
[2019-01-28] MEDS: BLOOD SUGAR DIAGNOSTIC STRIP TEST SCH ×4 (05:57→21:00)
[2019-01-28 06:19] LABS: BASOPHILS % 0.6 % (0.0-2.0); EOSINOPHILS % 2.7 % (0.0-5.0); HEMATOCRIT. 30.2 % (36.0-48.0); HEMOGLOBIN. 9.8 g/dL (12.0-16.0); MEAN CORPUSCULAR HEMOGLOBIN 28.3 pg (28.0-32.0); MEAN PLATELET VOLUME 7.3 fl (7.4-10.4); NEUTROPHILS % 66.7 % (40.0-76.0); PLATELET 154 x1000/uL (130-400); RED BLOOD CELL COUNT 3.47 mill/uL (4.2-5.4); RED CELL DISTRIBUTION WIDTH 15.8 % (11.6-14.6)
[2019-01-28] MEDS: INSULIN LISPRO 100 UNITS/ML SUBCUT SCH ×4 (07:45→23:00)
[2019-01-28 08:00] VITALS: BP 82/54
[2019-01-28] MEDS: CITRIC ACID/SODIUM CITRATE SOLN 15ML UDC PO SCH ×3 (08:39→17:27)
[2019-01-28] MEDS: LACTULOSE 20G/30ML UDC PO SCH (08:39)
[2019-01-28] MEDS: THIAMINE HCL 100MG TABLET PO SCH (08:40)
[2019-01-28] MEDS: PANTOPRAZOLE SODIUM 40 MG/VIAL IV SCH (08:40)
[2019-01-28] MEDS: FOLIC ACID 1MG TABLET PO SCH (08:40)
[2019-01-28] MEDS: MIDODRINE HCL 5MG TABLET PO SCH ×3 (08:40→17:27)
[2019-01-28] MEDS ORDERED: ALBUMIN HUMAN 25GM/100ML (25%) IV NR (10:00)
[2019-01-28 12:00] VITALS: BP 90/56
[2019-01-28 16:00] VITALS: BP 85/55
[2019-01-28] MEDS ORDERED: PHENOL/SODIUM PHENOLATE 1.4% SRPAY 177ML MM PRN (17:00)
[2019-01-28] MEDS ORDERED: DIPHENHYDRAMINE 50MG/ML VIAL IV NR (17:08)
[2019-01-28] MEDS: ENOXAPARIN 30MG/0.3ML SYR SUBCUT SCH (17:28)
[2019-01-28 20:00] VITALS: BP 92/55
[2019-01-29] VITALS: BP 83/53
[2019-01-29] MEDS: IPRATROPIUM/ALBUTEROL 0.5-3(2.5)MG/3ML NEB HHN SCH ×5 (01:13→16:27)
[2019-01-29] MEDS: BLOOD SUGAR DIAGNOSTIC STRIP TEST SCH ×3 (07:03→17:15)
[2019-01-29] MEDS: SODIUM CHLORIDE 0.9% INJ 3ML FLUSH IVF SCH ×2 (07:03→14:00)
[2019-01-29 08:00] VITALS: BP 91/58
[2019-01-29] MEDS: PANTOPRAZOLE SODIUM 40 MG/VIAL IV SCH (08:47)
[2019-01-29] MEDS: THIAMINE HCL 100MG TABLET PO SCH (08:48)
[2019-01-29] MEDS: MIDODRINE HCL 5MG TABLET PO SCH ×3 (08:48→18:02)
[2019-01-29] MEDS: FOLIC ACID 1MG TABLET PO SCH (08:48)
[2019-01-29] MEDS: LACTULOSE 20G/30ML UDC PO SCH (09:02)
[2019-01-29] MEDS: INSULIN LISPRO 100 UNITS/ML SUBCUT SCH ×3 (09:02→18:02)
[2019-01-29] MEDS: CITRIC ACID/SODIUM CITRATE SOLN 15ML UDC PO SCH ×3 (09:02→17:00)
[2019-01-29 10:09] LABS: BASOPHILS % 0.7 % (0.0-2.0); HEMOGLOBIN. 9.5 g/dL (12.0-16.0); LYMPHOCYTES % 18.9 % (20.0-50.0); MEAN CORPUSCULAR HEMOGLOBIN 27.9 pg (28.0-32.0); MEAN CORPUSCULAR VOLUME 87.6 fL (81.0-99.0); MEAN PLATELET VOLUME 7.3 fl (7.4-10.4); MONOCYTES % 7.3 % (2.0-8.0); NEUTROPHILS % 71.1 % (40.0-76.0); PLATELET 102 x1000/uL (130-400); RED BLOOD CELL COUNT 3.42 mill/uL (4.2-5.4); RED CELL DISTRIBUTION WIDTH 15.5 % (11.6-14.6)
[2019-01-29 10:23] LABS: PHOSPHORUS 4.4 mg/dL (2.5-4.9)
[2019-01-29] MEDS ORDERED: ALBUMIN HUMAN 25GM/100ML (25%) IV NR (11:00)
[2019-01-29 12:00] VITALS: BP 88/48
[2019-01-29 16:00] VITALS: BP 105/63
[2019-01-29 16:18] VITALS: BP 88/54
[2019-01-29] MEDS ORDERED: POLYVINYL ALCOHOL OPHTH DROPS 15ML EACHEYE SCH (18:00)
== END 2019-01-29 20:20 | disposition hospice, home (50) | DRG 870 ==
LOC: ER 21:49 → EDBEDREQSVC 23:05 → EDBEDREQTM 23:05 → EDBEDREQ 23:05 → ENRESERV 01-18 15:29 → CVICU 01-18 16:18 → 6WST 01-25
PROVIDERS: ADMIT Family Medicine; ATTEND Family Medicine
PROC: 06HN33Z Insertion of Infusion Device into Left Femoral Vein, Percutaneous Approach (ICD-10-PCS; 2019-01-18)
PROC: B54CZZA Ultrasonography of Left Lower Extremity Veins, Guidance (ICD-10-PCS; 2019-01-18)
PROC: 03HY32Z Insertion of Monitoring Device into Upper Artery, Percutaneous Approach (ICD-10-PCS; 2019-01-18)
PROC: 4A133B1 Monitoring of Arterial Pressure, Peripheral, Percutaneous Approach (ICD-10-PCS; 2019-01-18)
PROC: 4A133J1 Monitoring of Arterial Pulse, Peripheral, Percutaneous Approach (ICD-10-PCS; 2019-01-18)
PROC: 5A1955Z Respiratory Ventilation, Greater than 96 Consecutive Hours (ICD-10-PCS; principal; 2019-01-21)
PROC: 0BH17EZ Insertion of Endotracheal Airway into Trachea, Via Natural or Artificial Opening (ICD-10-PCS; 2019-01-21)
PROC: 0W9G3ZZ Drainage of Peritoneal Cavity, Percutaneous Approach (ICD-10-PCS; 2019-01-23)
PROC: 0W9G3ZZ Drainage of Peritoneal Cavity, Percutaneous Approach (ICD-10-PCS; 2019-01-25)
DX: A41.9 Sepsis, unspecified organism (principal); E43 Unspecified severe protein-calorie malnutrition; I21.4 Non-ST elevation (NSTEMI) myocardial infarction; J18.9 Pneumonia, unspecified organism; J96.00 Acute respiratory failure, unspecified whether with hypoxia or hypercapnia; R65.21 Severe sepsis with septic shock; N17.0 Acute kidney failure with tubular necrosis; R18.8 Other ascites; E87.2 Acidosis; I50.20 Unspecified systolic (congestive) heart failure; K50.90 Crohn's disease, unspecified, without complications; I13.0 Hypertensive heart and chronic kidney disease with heart failure and stage 1 through stage 4 chronic kidney disease, or unspecified chronic kidney disease; R74.0 Nonspecific elevation of levels of transaminase and lactic acid dehydrogenase [LDH]; I25.5 Ischemic cardiomyopathy; E11.22 Type 2 diabetes mellitus with diabetic chronic kidney disease; N18.2 Chronic kidney disease, stage 2 (mild); D64.9 Anemia, unspecified; E11.65 Type 2 diabetes mellitus with hyperglycemia; I25.118 Atherosclerotic heart disease of native coronary artery with other forms of angina pectoris; I27.20 Pulmonary hypertension, unspecified; K72.90 Hepatic failure, unspecified without coma; Z82.49 Family history of ischemic heart disease and other diseases of the circulatory system; Z83.3 Family history of diabetes mellitus; Z85.05 Personal history of malignant neoplasm of liver; Z85.09 Personal history of malignant neoplasm of other digestive organs; Z92.21 Personal history of antineoplastic chemotherapy; Z78.1 Physical restraint status; Z79.899 Other long term (current) drug therapy; Z68.24 Body mass index [BMI] 24.0-24.9, adult
CPT/HCPCS: 31500; 36415; 36600; 49083; 71045; 71250; 74018; 74176; 76705; 80048; 80061; 80076; 81003; 82105; 82140; 82248; 82375; 82550; 82553; 82805; 82962; 83605; 83735; 83880; 84100; 84145; 84484; 85027; 86301; 92610; 93005; 93306; 93970; 94002; 94003; 94640; 97162; 99291; A6261; C9113; J1644; J1650; J1815; J1956; J2250; J2405; J2543; J2704; J3370; J3475; J3480; J3490; J7030; J7042; J7060; J7620; P9047; Q0162; A4315